=== PATIENT | female | born 1995 | race Caucasian/White ===

== ENCOUNTER 2016-08-15 10:50 | Emergency (ER) | payer OTHER ==
[2016-08-15] MEDS ORDERED: SODIUM CHLORIDE 0.9% 2,000 ML IV STA (13:15)
[2016-08-15 13:41] LABS: Basophils % (A) 0 %; CH 32.7; CHCM 34.9; Eosinophils # (A) 0.1 k/uL (0-0.7); Eosinophils % (A) 1 %; HCT 35.5 % (34.0-46.0); HDW 2.59; HGB 11.7 gm/dL (11.4-16.0); Luc # (Auto) 0.07; Luc % (Auto) 1; Lymphocytes # (A) 0.9 k/uL (1.0-4.8); Lymphocytes % (A) 7 %; MCH 31.2 pg (25.0-35.0); MCHC 33.1 g/dL (31.0-37.0); MCV 94.2 fL (80.0-100.0); Mean Platelet Volume 7.2; Monocytes # (A) 0.4 k/uL (0-1.0); Monocytes % (A) 3 %; Neutrophils % (A) 89 %; RBC 3.77 m/uL (3.80-5.40); RDW 13.4 % (11.5-15.5); WBC 13.5 k/uL (4.0-11.0); WBC (Perox) 14.22
[2016-08-15 13:44] LABS: Appearance,Urine Clear (Clear); Bilirubin,Urine Negative (Negative); Glucose,Urine (UA) Negative (Negative); Ketones,Urine 1+ (Negative); Leukocyte Esterase,Urine Negative (Negative); Nitrite,Urine Negative (Negative); Protein,Urine Negative (Negative); Specific Gravity,Urine 1.021 (1.001-1.035); UA Billing (MACRO vs. MICRO) CHEM; Urobilinogen,Urine <2.0 mg/dL (<2.0)
[2016-08-15] MEDS ORDERED: ACETAMINOPHEN IV (For NPO) 1,000 MG in EMPTY BAG 1 BAG IVPB ONE (13:51)
--- NOTE | 2016-08-15 13:51 | ED ---
General Adult HPI - General Chief complaint: OB/Uterine Contractions Stated complaint: vomiting, Time Seen by Provider: 08/15/16 13:11 Source: patient, RN notes reviewed Mode of arrival: ambulatory Limitations: no limitations - History of Present Illness Initial comments: 21-year-old female presents emergency Department with a chief complaint of nausea vomiting diarrhea. Patient is currently 20 weeks . Patient has not a vomiting diarrhea starting today. She states that she just continues to have the vomiting and abdominal cramping so she thought that she should be seen. Patient states that she is no lightheadedness or dizziness. Patient has been seeing the [facility] for this . Patient denies vaginal drainage. Patient states she does have discharge but this is normal. Patient states that she is here for the nausea vomiting diarrhea. Patient states she is not currently having any other symptoms at this time.Patient denies any recent fever , chills, shortness of breath, chest pain, back pain, numbness or tingling, dysuria or hematuria, constipation or headaches or visual changes, or any other current symptoms. - Related Data Home Medications Medication Instructions Recorded Confirmed Pnv with Ca,No.72/Iron/FA 1 tab PO DAILY 07/26/16 08/15/16 [ Plus Tablet] Allergies Allergy/AdvReac Type Severity Reaction Status Date / Time Penicillins Allergy Unknown Verified 08/15/16 13:45 Review of Systems ROS Statement: Those systems with pertinent positive or pertinent negative responses have been documented in the HPI. ROS Other: All systems not noted in ROS Statement are negative. Past Medical History Past Medical History: No Reported History History of Any Multi-Drug Resistant Organisms: None Reported Past Surgical History: No Surgical Hx Reported Past Psychological History: Anxiety Smoking Status: Former smoker Past Alcohol Use History: None Reported Past Drug Use History: None Reported General Exam - General Exam Comments Initial Comments: General: The patient is awake and alert, in no distress, and does not appear acutely ill. Eye: Pupils are equal, round and reactive to light, extra-ocular movements are intact; there is normal conjunctiva bilaterally. No signs of icterus. Ears, nose, mouth and throat: There are moist mucous membranes and no oral lesions. Neck: The neck is supple, there is no tenderness . Cardiovascular: There is a regular rate and rhythm. No murmur, rub or gallop is appreciated. Respiratory: Lungs are clear to auscultation, respirations are non-labored, breath sounds are equal. No wheezes, stridor, rales, or rhonchi. Gastrointestinal: Soft, non-distended, non-tender abdomen without masses or organomegaly noted. There is no rebound or guarding present. No CVA tenderness. Bowel sounds are unremarkable. Back: There is no tenderness to palpation in the midline. There is no obvious deformity. No rashes noted. Musculoskeletal: Normal ROM, no tenderness, There is no pedal edema. There is no calf tenderness or swelling. Sensation intact. Pulses equal bilaterally 2+. Neurological: CN II-XII intact, There are no obvious motor or sensory deficits. Coordination appears grossly intact. Speech is normal. Skin: Skin is warm and dry and no rashes or lesions are noted. Psychiatric: Cooperative, appropriate mood & affect, normal judgment. Limitations: no limitations Course Vital Signs 08/15/16 08/15/16 08/15/16 11:14 13:10 14:03 Temperature 97.3 F L Pulse Rate 108 H 71 82 Respiratory 20 14 20 Rate Blood Pressure 108/63 89/50 97/56 O2 Sat by Pulse 95 98 98 Oximetry Medical Decision Making - Medical Decision Making 21-year-old female presents with nausea vomiting diarrhea and . This time patient's lab work was reviewed. Patient is feeling better in the room. Chest. Have some ketones in urine. She was well-hydrated. We discussed return parameters and follow-up. Patient stated that she understood all questions were answered. She will be discharged. heart tones were assessed and do feel to be appropriate. - Lab Data Result diagrams: 08/15/16 13:24 08/15/16 13:24 Lab Results 08/15/16 08/15/16 08/15/16 Range/Units 13:24 13:24 13:25 WBC 13.5 H (4.0-11.0) k/uL RBC 3.77 L (3.80-5.40) m/uL Hgb 11.7 (11.4-16.0) gm/dL Hct 35.5 (34.0-46.0) % MCV 94.2 (80.0-100.0) fL MCH 31.2 (25.0-35.0) pg MCHC 33.1 (31.0-37.0) g/dL RDW 13.4 (11.5-15.5) % Plt Count 220 (150-450) k/uL Neutrophils % 89 % Lymphocytes % 7 % Monocytes % 3 % Eosinophils % 1 % Basophils % 0 % Neutrophils # 12.0 H (1.3-7.7) k/uL Lymphocytes # 0.9 L (1.0-4.8) k/uL Monocytes # 0.4 (0-1.0) k/uL Eosinophils # 0.1 (0-0.7) k/uL Basophils # 0.0 (0-0.2) k/uL Sodium 139 (137-145) mmol/L Potassium 4.3 (3.5-5.1) mmol/L Chloride 106 (98-107) mmol/L Carbon Dioxide 22 (22-30) mmol/L Anion Gap 11 mmol/L BUN 12 (7-17) mg/dL Creatinine 0.50 L (0.52-1.04) mg/dL Est GFR (MDRD) Af Amer >60 (>60 ml/min/1.73 sqM) Est GFR (MDRD) Non-Af >60 (>60 ml/min/1.73 sqM) Glucose 79 (74-99) mg/dL Calcium 9.6 (8.4-10.2) mg/dL Total Bilirubin 0.5 (0.2-1.3) mg/dL AST 17 (14-36) U/L ALT 24 (9-52) U/L Alkaline Phosphatase 72 (38-126) U/L Total Protein 6.8 (6.3-8.2) g/dL Albumin 4.2 (3.5-5.0) g/dL Amylase 53 (30-110) U/L Lipase 32 (23-300) U/L Urine Color Yellow Urine Appearance Clear (Clear) Urine pH 6.0 (5.0-8.0) Ur Specific [place] 1.021 (1.001-1.035) Urine Protein Negative (Negative) Urine Glucose (UA) Negative (Negative) Urine Ketones 1+ H (Negative) Urine Blood Negative (Negative) Urine Nitrate Negative (Negative) Urine Bilirubin Negative (Negative) Urine Urobilinogen <2.0 (<2.0) mg/dL Ur Leukocyte Esterase Negative (Negative) Disposition Clinical Impression: Nausea & vomiting, Dehydration Disposition: HOME SELF-CARE Condition: Stable Instructions: Nausea and Vomiting in (ED) Additional Instructions: Please use medication as discussed. Please follow up with family doctor if symptoms have not improved over the next two days. Please return to the emergency room if your symptoms increase or worsen or for any other concerns. Referrals: Jacobo Tovar MD [Primary Care Provider] - 1-2 days Time of Disposition: 14:37
[2016-08-15 13:54] LABS: ALT 24 U/L (9-52); AST 17 U/L (14-36); Alkaline Phosphatase 72 U/L (38-126); Amylase 53 U/L (30-110); Anion Gap 11 mmol/L; Blood Urea Nitrogen 12 mg/dL (7-17); Calcium 9.6 mg/dL (8.4-10.2); Carbon Dioxide 22 mmol/L (22-30); Chloride 106 mmol/L (98-107); Glucose 79 mg/dL (74-99); Non-African American GFR(MDRD) >60 (>60 ml/min/1.73 sqM); Potassium 4.3 mmol/L (3.5-5.1); Sodium 139 mmol/L (137-145); Total Bilirubin 0.5 mg/dL (0.2-1.3); Total Protein 6.8 g/dL (6.3-8.2)
[2016-08-15 14:55] VITALS: BP 93/56; PULSE 92; RESP 14
[2016-08-15 14:56] VITALS: TEMP 98.4
== END 2016-08-15 16:01 | disposition home or self-care (01) ==
LOC: EC 10:50
DX: O21.1 Hyperemesis gravidarum with metabolic disturbance (principal); Z3A.20 20 weeks gestation of pregnancy; Z88.0 Allergy status to penicillin; Z87.891 Personal history of nicotine dependence
CPT/HCPCS: 36415; 80053; 82150; 83690; 85025; 81003; 87086; 99284; 96365; 96361; J0131

== ENCOUNTER 2016-09-22 19:39 | Observation (INO) | payer OTHER ==
[2016-09-22] MEDS: LACTATED RINGERS 1,000 ML IV SCH (22:15)
[2016-09-22 22:56] VITALS: BMI 22.1
[2016-09-23] MEDS: LACTATED RINGERS 1,000 ML IV SCH (06:32)
--- NOTE | 2016-09-23 07:05 | P.HPOB ---
History of Present Illness H&P Date: 09/23/16 Chief Complaint: Back pain This patient is a 21-year-old 2 para 1 female 25-1/2 weeks gestation who presented to triage last evening with complaints of intermittent back pain mostly on the right side. Patient denied any vaginal bleeding or other symptomatology. Patient's care is per Dr. Carrera and appears to be complicated by late to seek care. Evaluation here shows her cervix to be closed and thick and fibronectin is negative. Review of Systems Constitutional: Denies chills, Denies fever Cardiovascular: Denies chest pain, Denies shortness of breath Respiratory: Denies cough Gastrointestinal: Denies abdominal pain, Denies diarrhea, Denies nausea, Denies vomiting Genitourinary: Reports as per HPI, Reports Menstruation: Reports amenorrhea Past Medical History Past Medical History: No Reported History History of Any Multi-Drug Resistant Organisms: None Reported Past Surgical History: No Surgical Hx Reported Past Anesthesia/Blood Transfusion Reactions: No Reported Reaction Past Psychological History: Anxiety Smoking Status: Never smoker Past Alcohol Use History: None Reported Past Drug Use History: None Reported - Past Family History Father Family Medical History: No Reported History Medications and Allergies Home Medications Medication Instructions Recorded Confirmed Type Pnv with Ca,No.72/Iron/FA 1 tab PO DAILY 07/26/16 09/22/16 History [ Plus Tablet] Allergies Allergy/AdvReac Type Severity Reaction Status Date / Time Penicillins Allergy Rash/Hives Verified 09/22/16 19:44 Exam - Vital Signs Vital signs: Vital Signs Temp Pulse Resp BP Pulse Ox 09/22/16 22:49 96.9 F L 105 H 16 118/69 99 Intake and Output 09/22/16 09/23/16 09/23/16 22:59 06:59 14:59 Other: # Voids 1 1 Weight 56.699 kg - OBG Physical Exam Cervix: Patient's had multiple cervical exams shows her cervix to be closed and thick Assessment and Plan (1) Back pain affecting in second trimester Narrative/Plan: This is a 21-year-old 2 para 1 female 25-4/7 weeks gestation with back pain and initially with some contractions. Patient's evaluation has been negative however due to the pain persisting I admitted her for observation overnight. Plan is to continue close observation discharge home if stable. Status: Acute
--- NOTE | 2016-09-23 07:06 | P.PN ---
Progress Note - Text Patient was resting overnight and slept through most of it. monitoring shows rare contractions and reassuring heart tones for 25 weeks. Patient' s had no bleeding and states that her pain is improved this morning. Plan is to allow her to a breast cyst and discharge home after that follow up with Dr. Oliva this week
--- NOTE | 2016-09-23 07:08 | P.DS ---
Providers Date of admission: 09/22/16 21:55 Expected date of discharge: 09/23/16 Attending physician: Hao Oliva Primary care physician: Stated None - Discharge Diagnosis(es) (1) Back pain affecting in second trimester Current Visit: Yes Status: Acute Hospital Course: Patient was admitted to the hospital and had negative fibronectin. Due to some persistence of her contractions I felt was best to watch her overnight. Patient was admitted and given IV fluids and subsequent bili slept through most of the night. Patient was felt to be stable for discharge home in the morning to see Dr. Oliva this week for close follow-up. Did give her strict instructions as to what to return to labor and delivery for. Patient Condition at Discharge: Good Plan - Discharge Summary Discharge Medication List Pnv with Ca,No.72/Iron/FA [ Plus Tablet] 1 tab PO DAILY 07/26/16 [ History] Follow up Appointment(s)/Referral(s): Hao Oliva DO [Doctor of Osteopathic Medicine] - 3 Days (Patient is to call the office Saturday to see Dr. Carrera earlier this week for follow-up) Activity/Diet/Wound Care/Special Instructions: No intercourse or anything per vagina. Modified bed rest until seen by Dr. Carrera. Discharge Disposition: HOME SELF-CARE
[2016-09-23 08:14] VITALS: BP 114/57; PULSE 97; RESP 20; TEMP 98
== END 2016-09-23 08:55 | disposition home or self-care (01) ==
LOC: FBPOP 19:39 → 4FBP 21:55
PROVIDERS: ADMIT Obstetrics & Gynecology; ATTEND Obstetrics & Gynecology
DX: O26.892 Other specified pregnancy related conditions, second trimester (principal); M54.9 Dorsalgia, unspecified; Z3A.25 25 weeks gestation of pregnancy; Z79.899 Other long term (current) drug therapy; Z88.0 Allergy status to penicillin
CPT/HCPCS: 82731; G0463; G0378 ×2; 96360; 96361; 99213

== ENCOUNTER → 2016-10-17 | Outpatient (CLI) | payer OTHER ==
[2016-10-17 13:29] LABS: CH 32.3; CHCM 33.7; HCT 31.5 % (34.0-46.0); HDW 2.69; HGB 10.8 gm/dL (11.4-16.0); MCH 33.1 pg (25.0-35.0); MCHC 34.3 g/dL (31.0-37.0); MCV 96.5 fL (80.0-100.0); Mean Platelet Volume 7.6; RBC 3.26 m/uL (3.80-5.40); RDW 12.8 % (11.5-15.5); WBC 12.2 k/uL (4.0-11.0)
== END | disposition home or self-care (01) ==
LOC: LABWHC1 11:49
PROVIDERS: ATTEND Obstetrics & Gynecology
DX: Z34.81 Encounter for supervision of other normal pregnancy, first trimester (principal)
CPT/HCPCS: 36415; 82950; 85027; 86850

== ENCOUNTER 2016-12-02 21:14 | Outpatient (CLI) | payer OTHER ==
[2016-12-02 21:48] VITALS: BP 141/70; PULSE 122; RESP 16; TEMP 97.7
[2016-12-02 21:48] LABS: Appearance,Urine Cloudy (Clear); Bacteria,Urine Rare /hpf; Bilirubin,Urine Negative (Negative); Glucose,Urine (UA) Negative (Negative); Ketones,Urine Negative (Negative); Leukocyte Esterase,Urine Large (Negative); Mucus,Urine Occasional /hpf; Nitrite,Urine Negative (Negative); PH, Urine 6.5 (5.0-8.0); Particle Count 9097; Protein,Urine 1+ (Negative); RBC,Urine 2 /hpf (0-5); Specific Gravity,Urine 1.026 (1.001-1.035); Squamous Epithelial Cell,Urine 4 /hpf (0-4); UA Billing (MACRO vs. MICRO) MICRO; Urobilinogen,Urine <2.0 mg/dL (<2.0); WBC,Urine 10 /hpf (0-5)
--- NOTE | 2016-12-05 08:26 | P.MSEPDOC ---
Presenting Problems - Arrival Data Date of Arrival on Unit: 12/02/16 Time of Arrival on Unit: 21:13 Mode of Transport: Wheelchair - Complaint OB-Reason for Admission/Chief Complaint: Pain Comment: 03/07 sharp, shooting starting from cervix through uterus. Medical History - Information : 2 Para: 1 Term: 0 : 0 Abortions: Spontaneous or Elective: 0 Number of Living Children: 1 - Gestational Age Expected Date of Delivery: 12/31/16 Gestational Age by DEAN (wks/days): 36 Weeks and 2 Days - History Complications: Other Comment: contractions and admission at 25 weeks. received IV fluids. Review of Systems - Review of Systems Constitutional: No problems Breast: No problems ENT: No problems Cardiovascular: No problems Respiratory: No problems Gastrointestinal: No problems Genitourinary: No problems Musculoskeletal: No problems Neurological: No problems Skin: No problems Vital Signs - Temperature Temperature: 97.7 F Temperature Source: Oral - Pulse Right Sitting Brachial Pulse Rate: 122 Pulse Assessment Method: Automatic Cuff - Respirations Respiratory Rate: 16 Oxygen Delivery Method: Room Air - Blood Pressure Right Arm Sitting Blood Pressure: 141/70 Blood Pressure Mean: 93 Blood Pressure Source: Automatic Cuff Medical Screen Scoring (Pre) - Cervical Exam Dilation: 1-3 cm = 1 Membranes: Intact - Uterine Contractions Frequency: N/A Duration: N/A Intensity: N/A - Maternal Vital Signs Maternal Temperature: N/A Maternal Blood Pressure: N/A Signs of Preeclampsia: N/A Maternal Respirations: N/A - Maternal Trauma Maternal Trauma: N/A - Assessment Baseline FHR: 150 Heart Rate - NICHD Category: Category I (Normal) = 0 NST: Reactive Station: N/A - Total Score Total Score (Pre): 1 - Level of Risk Level of Risk: Low (0-5) Physician Notification (Pre) - Physician Notified Physician Notified Date: 12/02/16 Physician/Practitioner Notifed:: dr fuller Physician Notification (Post) - Physician Notified Physician Notified Date: 12/02/16 Physician Notified Time: 22:00 Physician/Practitioner Notified:: jonny New Order Received: Yes - Notification Comment Comment: ordered to d/c patient with orders to follow up with kuester tomorrow. Disposition - Disposition OB Disposition: Discharge to home, Written follow up instructions reviewed Discharge Date: 12/02/16 Discharge Time: 22:05 I agree with the RN Medical Screening Exam: Yes Risk & Benefit of care provided described in d/c instruction: Yes Diagnosis: PELVIC AND PERINEAL PAIN
== END 2016-12-02 22:05 | disposition home or self-care (01) ==
LOC: FBPOP 21:14
PROVIDERS: ATTEND Obstetrics & Gynecology
DX: O99.89 Other specified diseases and conditions complicating pregnancy, childbirth and the puerperium (principal); R10.2 Pelvic and perineal pain; Z3A.36 36 weeks gestation of pregnancy
CPT/HCPCS: 59025; 81001; G0463; 99213

== ENCOUNTER 2016-12-19 17:57 | Observation (INO) | payer OTHER ==
[2016-12-19 19:02] VITALS: BP 124/62; PULSE 139; RESP 17
[2016-12-19 19:49] VITALS: TEMP 97; BMI 25.7
[2016-12-19] MEDS ORDERED: CARBOPROST TROMETHAMINE 250 MCG/ML 1 ML AMP IM PRN (19:49)
[2016-12-19] MEDS ORDERED: METHYLERGONOVINE 0.2 MG/ML 1 ML AMP IM PRN (19:49)
[2016-12-19] MEDS ORDERED: TERBUTALINE 1 MG/ML VIAL SQ PRN (19:49)
[2016-12-19] MEDS ORDERED: OXYTOCIN 10 UNIT/ML 1 ML VIAL IM PRN (19:49)
[2016-12-19] MEDS ORDERED: LIDOCAINE 1% (PF) 10 MG/ML (30 ML SDV) SQ PRN (19:49)
[2016-12-19] MEDS ORDERED: BUTORPHANOL 1 MG/ML 1 ML VIAL IV PRN (19:51)
[2016-12-19] MEDS ORDERED: OXYTOCIN 20 UNITS/1000 ML NS 1,000 ML IV SCH (20:00)
[2016-12-19] MEDS: LACTATED RINGERS 1,000 ML IV SCH (20:18)
[2016-12-19 20:31] LABS: Basophils # (A) 0.1 k/uL (0-0.2); Basophils % (A) 0 %; CHCM 33.4; Eosinophils # (A) 0.1 k/uL (0-0.7); Eosinophils % (A) 1 %; HCT 31.3 % (34.0-46.0); HDW 3.29; HGB 10.4 gm/dL (11.4-16.0); Luc # (Auto) 0.17; Luc % (Auto) 1; Lymphocytes # (A) 1.7 k/uL (1.0-4.8); Lymphocytes % (A) 14 %; MCH 30.1 pg (25.0-35.0); MCHC 33.4 g/dL (31.0-37.0); Monocytes # (A) 0.5 k/uL (0-1.0); Monocytes % (A) 4 %; Neutrophils # (A) 9.8 k/uL (1.3-7.7); Neutrophils % (A) 79 %; RBC 3.47 m/uL (3.80-5.40); RDW 13.1 % (11.5-15.5); WBC 12.3 k/uL (4.0-11.0); WBC (Perox) 12.47
[2016-12-19 20:32] LABS: MCV 90.2 fL (80.0-100.0)
[2016-12-20] MEDS: LACTATED RINGERS 1,000 ML IV SCH (02:02)
--- NOTE | 2016-12-20 11:01 | P.HPOB ---
History of Present Illness H&P Date: 12/20/16 Chief Complaint: Intrauterine term: status post fall In is a 21-year-old female who [place] last [place] and fell and hit her arm and leg she is brought to labor and delivery was noted to be naye at that time and appeared uncomfortable. She may baby minimal cervical change to 3-3/2 cm but once IV started the contractions abated and she made no further cervical change. After observing her all night which amounts to greater than 12 hours of observation she is made no other cervical change. Her Precis course otherwise has been unremarkable. Heart regular, lungs clear, extremities without pain. Vital signs are stable and afebrile. heart tones 140s and reactive. Assessment status post fall term . Plan observation Past Medical History Past Medical History: No Reported History History of Any Multi-Drug Resistant Organisms: None Reported Past Surgical History: No Surgical Hx Reported Past Anesthesia/Blood Transfusion Reactions: No Reported Reaction Past Psychological History: Anxiety Smoking Status: Never smoker Past Alcohol Use History: None Reported Past Drug Use History: None Reported - Past Family History Father Family Medical History: No Reported History Medications and Allergies Home Medications Medication Instructions Recorded Confirmed Type Pnv,Calcium 72/Iron/Folic Acid 1 tab PO DAILY 07/26/16 12/19/16 History [ Plus Tablet] Allergies Allergy/AdvReac Type Severity Reaction Status Date / Time Penicillins Allergy Rash/Hives Verified 12/19/16 18:15 Exam Osteopathic Statement: *. No significant issues noted on an osteopathic structural exam other than those noted in the History and Physical/Consult. - Vital Signs Vital signs: Vital Signs Temp Pulse Resp BP Pulse Ox 12/19/16 19:42 97 F L 139 H 17 124/62 100 12/19/16 18:20 97.0 F L 139 H 17 124/62 100 Intake and Output 12/19/16 12/20/16 12/20/16 22:59 06:59 14:59 Intake Total 1000 Balance 1000 Intake: IV 1000 Lactated Ringers 1,000 ml 1000 @ 125 mls/hr IV .Q8H CATHIE Rx#:[id number] Other: # Voids 1 1 Weight 65.771 kg Results Result Diagrams: 12/19/16 20:18 Abnormal Lab Results - Last 24 Hours (Table) 12/19/16 Range/Units 20:18 WBC 12.3 H (4.0-11.0) k/uL RBC 3.47 L (3.80-5.40) m/uL Hgb 10.4 L (11.4-16.0) gm/dL Hct 31.3 L (34.0-46.0) % Neutrophils # 9.8 H (1.3-7.7) k/uL
--- NOTE | 2016-12-20 11:02 | P.DS ---
Providers Date of admission: 12/19/16 19:33 Expected date of discharge: 12/20/16 Attending physician: Hao Oliva Primary care physician: Stated None Hospital Course: After observing patient all night contractions have essentially abated and she is having future no contractions at this time. heart tones were in the 140s and reactive. She was scheduled to see me later today but will have her call and changes that first part of next week as there is no other changes that are going to be needed today. She is aware to return with contractions or other changes. All other questions are answered for her and there is no changed her physical exam or vital signs since earlier this morning. Patient Condition at Discharge: Good Plan - Discharge Summary Discharge Medication List Pnv,Calcium 72/Iron/Folic Acid [ Plus Tablet] 1 tab PO DAILY 07/26/16 [ History] Discharge Disposition: HOME SELF-CARE
== END 2016-12-20 10:15 | disposition home or self-care (01) ==
LOC: FBPOP 17:57 → 4FBP 19:33 → INTOOBSV 19:33
PROVIDERS: ADMIT Obstetrics & Gynecology; ATTEND Obstetrics & Gynecology
DX: O62.8 Other abnormalities of forces of labor (principal); Z3A.20 20 weeks gestation of pregnancy; Z91.81 History of falling; O99.342 Other mental disorders complicating pregnancy, second trimester; F41.9 Anxiety disorder, unspecified; Z88.0 Allergy status to penicillin
CPT/HCPCS: 59025; 84112; 85025; G0463; G0378 ×2; 99213

== ENCOUNTER 2017-01-01 06:00 | Inpatient (IN) | payer OTHER ==
[2017-01-01] MEDS ORDERED: CARBOPROST TROMETHAMINE 250 MCG/ML 1 ML AMP IM PRN (07:15)
[2017-01-01] MEDS ORDERED: OXYTOCIN 20 UNITS/1000 ML NS 1,000 ML IV SCH (07:15)
[2017-01-01] MEDS ORDERED: OXYTOCIN 10 UNIT/ML 1 ML VIAL IM PRN (07:15)
[2017-01-01] MEDS ORDERED: LIDOCAINE 1% (PF) 10 MG/ML (30 ML SDV) SQ PRN (07:15)
[2017-01-01] MEDS ORDERED: TERBUTALINE 1 MG/ML VIAL SQ PRN (07:15)
[2017-01-01] MEDS ORDERED: METHYLERGONOVINE 0.2 MG/ML 1 ML AMP IM PRN (07:15)
[2017-01-01 07:28] VITALS: BMI 25.3
[2017-01-01 07:30] LABS: Basophils # (A) 0.1 k/uL (0-0.2); Basophils % (A) 1 %; CH 29.3; CHCM 32.9; Eosinophils # (A) 0.2 k/uL (0-0.7); Eosinophils % (A) 1 %; HCT 30.5 % (34.0-46.0); HDW 3.28; HGB 10.2 gm/dL (11.4-16.0); Luc # (Auto) 0.28; Luc % (Auto) 2; Lymphocytes # (A) 2.5 k/uL (1.0-4.8); Lymphocytes % (A) 19 %; MCH 30.1 pg (25.0-35.0); MCHC 33.6 g/dL (31.0-37.0); MCV 89.6 fL (80.0-100.0); Mean Platelet Volume 6.9; Monocytes # (A) 0.5 k/uL (0-1.0); Monocytes % (A) 4 %; Neutrophils # (A) 9.6 k/uL (1.3-7.7); Neutrophils % (A) 73 %; RDW 13.5 % (11.5-15.5); WBC 13.1 k/uL (4.0-11.0); WBC (Perox) 12.46
[2017-01-01] MEDS: LACTATED RINGERS 1,000 ML IV SCH ×2 (07:32→09:10)
[2017-01-01] MEDS ORDERED: fentaNYL (PF) 50 MCG/ML 5 ML AMP ONE (08:45)
[2017-01-01] MEDS ORDERED: SODIUM CHLORIDE 0.9% 100 ML BAG ONE (08:45)
[2017-01-01] MEDS ORDERED: BUPIVACAINE (PF) 0.25% 30 ML VIAL ONE (08:45)
[2017-01-01] MEDS ORDERED: BUPIVACAINE (PF) 0.25% 25 ML, fentaNYL (PF) 200 MCG in SODIUM CHLORIDE 0.9% 71 ML EPIDURAL ONE (10:46)
[2017-01-01] MEDS ORDERED: BENZOCAINE SPRAY 57GM TOPICAL PRN (13:26)
[2017-01-01] MEDS ORDERED: ZOLPIDEM 5 MG TAB PO PRN (13:26)
[2017-01-01] MEDS ORDERED: Acetaminophen-Codeine 300-30mg TAB PO PRN ×2 (13:26)
[2017-01-01] MEDS ORDERED: HYDROCORTISONE 2.5% RECTAL CREAM 30 GM TUBE RECTAL PRN (13:26)
[2017-01-01] MEDS ORDERED: diphenhydrAMINE 50 MG/ML 1 ML VIAL IVP PRN ×2 (13:26)
[2017-01-01] MEDS ORDERED: LANOLIN CREAM 5 GM TUBE TOPICAL PRN (13:26)
[2017-01-01] MEDS ORDERED: WITCH HAZEL 1 EACH MED..PAD TOPICAL PRN (13:26)
[2017-01-01] MEDS ORDERED: diphenhydrAMINE 25 MG CAP PO PRN (13:26)
[2017-01-01] MEDS ORDERED: diphenhydrAMINE 50 MG CAP PO PRN (13:26)
[2017-01-01] MEDS ORDERED: SIMETHICONE 80 MG CHEWABLE PO PRN (13:26)
--- NOTE | 2017-01-01 13:34 | P.HPOB ---
History of Present Illness H&P Date: 01/01/17 Chief Complaint: Intrauterine at term: Induction of labor Patient is a 21-year-old G3 to P1 at 39 weeks gestation who arrives for induction of labor. Her course has been, K to 5 measuring small for dates but ultrasounds have consistently show the baby to be adequate size. She is scheduled for a an induction of labor today at her request. Nonstress test done yesterday was reactive. Pertinent labs do include A- blood type, Rh antibody negative. Rubella hepatitis B, RPR were all negative as was group B strep. On On physical exam vital signs are stable and afebrile. Heart regular, lungs clear, extremities without pain. Pelvic exam reveals her to be 3 cm dilated 80 % effaced artificial rupture membranes was performed and clear fluid is noted. heart tones are in the 140s and reactive prior to artificial rupture membranes. Assessment intrauterine at 39 weeks. Plan expect spontaneous vaginal delivery with Pitocin augmentation of labor. Land for epidural for pain control Past Medical History Past Medical History: No Reported History History of Any Multi-Drug Resistant Organisms: None Reported Past Surgical History: No Surgical Hx Reported Past Anesthesia/Blood Transfusion Reactions: No Reported Reaction Past Psychological History: Anxiety Smoking Status: Never smoker Past Alcohol Use History: None Reported Past Drug Use History: None Reported - Past Family History Father Family Medical History: No Reported History Medications and Allergies Home Medications Medication Instructions Recorded Confirmed Type Pnv,Calcium 72/Iron/Folic Acid 1 tab PO DAILY 07/26/16 01/01/17 History [ Plus Tablet] Allergies Allergy/AdvReac Type Severity Reaction Status Date / Time Penicillins Allergy Rash/Hives Verified 01/01/17 07:14 Exam Osteopathic Statement: *. No significant issues noted on an osteopathic structural exam other than those noted in the History and Physical/Consult. - Vital Signs Vital signs: Vital Signs Temp Pulse Resp BP Pulse Ox 01/01/17 07:19 96.6 F L 125 H 17 113/59 99 Intake and Output 12/31/16 01/01/17 01/01/17 22:59 06:59 14:59 Other: Weight 64.864 kg Patient Weight 01/02/17 06:59 Weight 64.864 kg Results Result Diagrams: 01/01/17 07:10 Abnormal Lab Results - Last 24 Hours (Table) 01/01/17 Range/Units 07:10 WBC 13.1 H (4.0-11.0) k/uL RBC 3.40 L (3.80-5.40) m/uL Hgb 10.2 L (11.4-16.0) gm/dL Hct 30.5 L (34.0-46.0) % Neutrophils # 9.6 H (1.3-7.7) k/uL
--- NOTE | 2017-01-01 13:35 | P.PROBDLV ---
Vaginal Delivery Note - . Vaginal Delivery Note: She progressed complete and pushed with spontaneous vaginal delivery of a viable male over a second-degree midline laceration. Following delivery of the head anterior posterior shoulders were easily delivered with downward and upward traction followed by the remainder the baby. Baby was delivered from left occiput anterior position. Once baby's was delivered baby was placed on mother's abdomen mouth nares were bulb suctioned and the umbilical cord was allowed to pulsate for 30 seconds. Following clamping and cutting of the cord placenta was delivered intact and Pitocin was added to the IV. Xylocaine was then used to inject the perineum for repair and repair was done in usual fashion with 3-0 Vicryl. Both mother and baby are stable findings delivery and scores and weight are pending
[2017-01-01] MEDS: IBUPROFEN 600 MG TAB PO PRN (13:46)
[2017-01-01] MEDS: ACETAMINOPHEN TAB 325 MG TAB PO PRN (18:16)
[2017-01-01] MEDS: SENNOSIDES-DOCUSATE SODIUM 1 EACH TAB PO SCH (20:58)
[2017-01-01 22:35] VITALS: RESP 16
[2017-01-02] MEDS: ACETAMINOPHEN TAB 325 MG TAB PO PRN (02:51)
[2017-01-02] MEDS: IBUPROFEN 600 MG TAB PO PRN ×2 (04:30→13:03)
[2017-01-02 08:07] VITALS: BP 104/63; PULSE 90; TEMP 98.5
--- NOTE | 2017-01-02 08:09 | P.DS ---
Providers Date of admission: 01/01/17 06:45 Expected date of discharge: 01/02/17 Attending physician: Hao Oliva Primary care physician: Stated None Hospital Course: Patient is doing very well day 1. She delivered a viable male yesterday and she is requesting discharge home today. Her vital signs are stable and afebrile. Heart regular, lungs clear, extremities without pain. Abdomen soft uterus is firm lochia is reported be light. She is voicing no complaints. She is ambulating, voiding, and she is tolerating her diet. Prescription for Tylenol No. 3 and Motrin have been provided. Discharge instructions were thoroughly reviewed and all questions are answered for her prior to her discharge. Patient Condition at Discharge: Good Plan - Discharge Summary New Discharge Prescriptions: New Acetaminophen-Codeine 300-30mg [Tylenol #3] 1 tab PO Q4H PRN #30 tablet PRN Reason: Pain Ibuprofen [Motrin] 600 mg PO Q6HR PRN #30 tab PRN Reason: Pain No Action Pnv,Calcium 72/Iron/Folic Acid [ Plus Tablet] 1 tab PO DAILY Discharge Medication List Pnv,Calcium 72/Iron/Folic Acid [ Plus Tablet] 1 tab PO DAILY 07/26/16 [ History] Acetaminophen-Codeine 300-30mg [Tylenol #3] 1 tab PO Q4H PRN #30 tablet [Rx] Ibuprofen [Motrin] 600 mg PO Q6HR PRN #30 tab 01/02/17 [Rx] Follow up Appointment(s)/Referral(s): Hao Oliva DO [Doctor of Osteopathic Medicine] - 6 Weeks Activity/Diet/Wound Care/Special Instructions: No heavy lifting, limit stairs and driving and pelvic rest. If any high temperatures, heavy bleeding, or severe pain call my office Discharge Disposition: HOME SELF-CARE
[2017-01-02] MEDS: SENNOSIDES-DOCUSATE SODIUM 1 EACH TAB PO SCH (10:27)
[2017-01-02] MEDS ORDERED: Rhogam IMMUNE GLOBULIN 1,500 UNIT/1 ML IM ONE (13:27)
== END 2017-01-02 14:40 | disposition home or self-care (01) | DRG 775 ==
LOC: EDSTATUS 06:00 → 4FBP 06:45
PROVIDERS: ADMIT Obstetrics & Gynecology; ATTEND Obstetrics & Gynecology
PROC: 10E0XZZ Delivery of Products of Conception, External Approach (ICD-10-PCS; principal; 2017-01-01)
PROC: 0KQM0ZZ Repair Perineum Muscle, Open Approach (ICD-10-PCS; 2017-01-01)
PROC: 10907ZC Drainage of Amniotic Fluid, Therapeutic from Products of Conception, Via Natural or Artificial Opening (ICD-10-PCS; 2017-01-01)
PROC: 3E0234Z Introduction of Serum, Toxoid and Vaccine into Muscle, Percutaneous Approach (ICD-10-PCS; 2017-01-01)
DX: O99.344 Other mental disorders complicating childbirth (principal); F41.9 Anxiety disorder, unspecified; Z37.0 Single live birth; O70.1 Second degree perineal laceration during delivery; Z3A.39 39 weeks gestation of pregnancy; Z88.0 Allergy status to penicillin
CPT/HCPCS: 85025; 85461; 88307

== ENCOUNTER 2018-09-09 16:51 | Emergency (ER) | payer OTHER ==
[2018-09-09 17:07] VITALS: BP 127/72; RESP 18; TEMP 99
[2018-09-09] MEDS ORDERED: IBUPROFEN 600 MG TAB PO STA (17:16)
[2018-09-09] MEDS ORDERED: guaiFENesin-DM 600/30MG 1 EACH TAB.ER.12H PO STA (17:17)
--- NOTE | 2018-09-09 17:19 | ED ---
General Adult HPI - General Chief complaint: Upper Respiratory Infection Stated complaint: congestion/sore & swollen throat Time Seen by Provider: 09/09/18 17:01 Source: patient Mode of arrival: ambulatory Limitations: no limitations - History of Present Illness Initial comments: 23-year-old female patient presents to the emergency department today for evaluation of sore throat, nasal congestion, and cough. Patient states that she has been feverish and chilled. States symptoms started last night. States that there throat feels very swollen makes it difficult to swallow. She denies any unilateral throat pain. Denies any chance of . States that her significant other sick with similar symptoms. Patient denies any recent rash, shortness breath, chest pain, abdominal pain, nausea, vomiting, diarrhea, constipation, back pain, numbness, tingling, dizziness, weakness, hematuria, dysuria, urinary urgency, urinary frequency, headache, visual changes, or any other complaints. - Related Data Home Medications Medication Instructions Recorded Confirmed Pnv,Calcium 72/Iron/Folic Acid 1 tab PO DAILY 07/26/16 01/01/17 [ Plus Tablet] Previous Rx's Medication Instructions Recorded Acetaminophen-Codeine 300-30mg 1 tab PO Q4H PRN #30 tablet 01/02/17 [Tylenol #3] Ibuprofen [Motrin] 600 mg PO Q6HR PRN #30 tab 01/02/17 guaiFENesin-DM 600/30MG [Mucinex 1 each PO Q12HR #10 tab.er.12h 09/09/18 Dm] Allergies Allergy/AdvReac Type Severity Reaction Status Date / Time Penicillins Allergy Rash/Hives Verified 09/09/18 17:07 Review of Systems ROS Statement: Those systems with pertinent positive or pertinent negative responses have been documented in the HPI. ROS Other: All systems not noted in ROS Statement are negative. Past Medical History Past Medical History: No Reported History History of Any Multi-Drug Resistant Organisms: None Reported Past Surgical History: No Surgical Hx Reported Past Anesthesia/Blood Transfusion Reactions: No Reported Reaction Past Psychological History: Anxiety Smoking Status: Current some day smoker Past Alcohol Use History: None Reported Past Drug Use History: None Reported - Past Family History Father Family Medical History: No Reported History General Exam Limitations: no limitations General appearance: alert, in no apparent distress, other (This is a well- developed, well-nourished adult female patient in no acute distress. Vital signs upon presentation are temperature 99.4F oral, pulse 129, respirations 18 , blood pressure 127/72, pulse ox 100% on room air.) Eye exam: Present: normal appearance, PERRL, EOMI. Absent: scleral icterus, conjunctival injection, periorbital swelling ENT exam: Present: mucous membranes moist, TM's normal bilaterally. Absent: normal exam, normal oropharynx (Pharyngeal erythema, tonsillar hypertrophy. No tonsillar exudate noted. Tonsils are symmetric.) Neck exam: Present: normal inspection, lymphadenopathy (Anterior cervical lymphadenopathy). Absent: tenderness, meningismus Respiratory exam: Present: normal lung sounds bilaterally. Absent: respiratory distress, wheezes, rales, rhonchi, stridor Cardiovascular Exam: Present: normal rhythm, tachycardia, normal heart sounds. Absent: systolic murmur, diastolic murmur, rubs, gallop, clicks GI/Abdominal exam: Present: soft, normal bowel sounds. Absent: distended, tenderness, guarding, rebound, rigid Neurological exam: Present: alert, oriented X3, CN II-XII intact Psychiatric exam: Present: normal affect, normal mood Skin exam: Present: warm, dry, intact, normal color. Absent: rash Course Vital Signs 09/09/18 09/09/18 17:04 19:00 Temperature 99 F Pulse Rate 129 H 115 H Respiratory 18 18 Rate Blood Pressure 127/72 O2 Sat by Pulse 100 99 Oximetry Medical Decision Making - Medical Decision Making 23-year-old female patient presented to the emergency department today for evaluation of cough, sore throat, nasal congestion. Patient states symptoms started last evening. States she has had hot and cold flashes. She denies any nausea or vomiting. Denies any chance of . Lungs are clear to auscultation with good air movement. She denies sputum production. Influenza and strep testing were negative. Did discuss findings and results with the patient. We did discuss her symptoms are most likely viral in nature. We did discuss supportive care. She'll be given a prescription for Mucinex DM. She is instructed to follow-up with her primary care physician for recheck in 1-2 days. Return parameters discussed in detail. She verbalizes understanding and agrees with this plan - Lab Data Lab Results 09/09/18 09/09/18 Range/Units 17:30 17:30 Influenza Type A RNA Not Detected (Not Detectd) Influenza Type B (PCR) Not Detected (Not Detectd) Group A Strep Rapid Negative (Negative) Disposition Clinical Impression: Viral upper respiratory infection Disposition: HOME SELF-CARE Condition: Good Instructions (If sedation given, give patient instructions): Upper Respiratory Infection (ED) Additional Instructions: Increase fluids. Alternate Tylenol and Motrin for pain and fever control. Take Mucinex DM as needed for symptom relief. Follow-up with her primary care physician for recheck in 1-2 days. Return to the emergency department immediately for any new, worsening, or concerning symptoms. Prescriptions: guaiFENesin-DM 600/30MG [Mucinex Dm] 1 each PO Q12HR #10 tab.er.12h Is patient prescribed a controlled substance at d/c from ED?: No Referrals: [facility] [NON[facility]] - 1-2 days Time of Disposition: 18:54
[2018-09-09 19:02] VITALS: PULSE 115
== END 2018-09-09 19:01 | disposition home or self-care (01) ==
LOC: EC 16:51
DX: J06.9 Acute upper respiratory infection, unspecified (principal); F17.200 Nicotine dependence, unspecified, uncomplicated; Z88.0 Allergy status to penicillin
CPT/HCPCS: 87081; 87430; 87502; 99283

== ENCOUNTER → 2020-01-12 | Outpatient (CLI) | payer OTHER ==
--- NOTE | 2020-01-12 15:31 | US ---
EXAMINATION TYPE: Transabdominal DATE OF EXAM: 01/12/2020 2:55 PM COMPARISON: NONE CLINICAL HISTORY: Z36 Confirm Dates. EXAM PERFORMED: Transabdominal (TA) EXAM MEASUREMENTS: GESTATIONAL AGE / DATING Physician Established: Not yet established Dates by LMP: 09/28/2019 (12 weeks/2 days) EDC: 07/24/2020 Dates by First Scan: No previous. Dates by Current Scan for: (11 weeks/0 days) EDC: 08/02/2020 MATERNAL ANATOMY Uterus: 14.7 x 9.2 x 7.0cm Right Ovary: 2.8 x 2.6 x 1.4cm Left Ovary: 3.3 x 2.4 x 2.1cm Post CDS / Adnexa: wnl Presence of free fluid: no Presence of corpus luteal cyst: not identified Presence of subchorionic bleed: small. hypoechoic area is noted inferior to gestational sac and size = 1.0 x 0.7 x 0.4cm. GESTATION / SURVEY CRL: 4.1cm (11 weeks/0 days) Yolk Sac (normal less than 6mm): 4.0mm Heart Rate: 174 bpm Rhythm: Normal IUP: single Date of LMP: 10/18/2019 Beta HcG (if available): not available IMPRESSION: Single, live IUP,11 weeks/0 days, EDC: 08/02/2020, Heart Rate 174bpm.
== END | disposition home or self-care (01) ==
LOC: RADUSWWP 14:35
PROVIDERS: ATTEND Obstetrics & Gynecology
DX: Z36.9 Encounter for antenatal screening, unspecified (principal); Z3A.11 11 weeks gestation of pregnancy; Z88.0 Allergy status to penicillin; Z88.8 Allergy status to other drugs, medicaments and biological substances
CPT/HCPCS: 76801

== ENCOUNTER 2020-07-13 06:30 | Inpatient (IN) | payer OTHER ==
--- NOTE | 2020-07-12 17:03 | P.HPOB ---
History of Present Illness H&P Date: 07/12/20 Chief Complaint: at term: IUGR Patient is a 25-year-old at 37 weeks gestation who has been followed for small for gestational age/IUGR. Her last ultrasound baby returned less than 10th percentile at 36 weeks and she is therefore being induced for same today. Cervix last visit was dilated to 1 cm 6% effaced -2 station. Her course otherwise had been generally unremarkable. And she was feeling well at her initial presentation and at her last few visits. Pertinent labs did include A- blood type Rh antibody was negative, rubella was immune, hepatitis she surface antigen and RPR were both negative groupie strep was also negative. Past Medical History Past Medical History: No Reported History History of Any Multi-Drug Resistant Organisms: None Reported Past Surgical History: No Surgical Hx Reported Past Anesthesia/Blood Transfusion Reactions: No Reported Reaction Past Psychological History: Anxiety Past Alcohol Use History: None Reported Past Drug Use History: None Reported - Past Family History Father Family Medical History: No Reported History Medications and Allergies Home Medications Medication Instructions Recorded Confirmed Type Pnv,Calcium 72/Iron/Folic Acid 1 tab PO DAILY 07/26/01/01/17 History [ Plus Tablet] Acetaminophen-Codeine 300-30mg 1 tab PO Q4H PRN #30 tablet 01/02/17 Rx [Tylenol #3] Ibuprofen [Motrin] 600 mg PO Q6HR PRN #30 tab 01/02/17 Rx guaiFENesin-DM 600/30MG [Mucinex 1 each PO Q12HR #10 tab.er.12h 09/09/18 Rx Dm] Allergies Allergy/AdvReac Type Severity Reaction Status Date / Time Penicillins Allergy Rash/Hives Verified 09/09/18 17:07 Exam Osteopathic Statement: *. No significant issues noted on an osteopathic structural exam other than those noted in the History and Physical/Consult. - OBG Physical Exam Breast: both: normal (no masses) Abdomen: bowel sounds normal, no diffuse tenderness, no bruit present, no guarding noted, no hepatomegaly, no splenomegaly, no mass Vulva: both: normal Vagina: normal moisture, no discharge Cervix: no lesion, no discharge Uterus: normal size, normal contour Adnexa: both: normal Anus/Rectum: normal perianal skin, no rectal mass, no hemorrhoids, heme negative
[~2020-07-13 06:30] MED LIST: CARBOPROST TROMETHAMINE 250 MCG/ML 1 ML AMP IM PRN; LIDOCAINE 0.5% (PF) 5 MG/ML (50 ML SDV) SQ PRN; METHYLERGONOVINE 0.2 MG/ML 1 ML AMP IM PRN; OXYTOCIN 10 UNIT/ML 1 ML VIAL IM PRN; OXYTOCIN 30 UNITS/500 ML NS 30 UNIT in SALINE 1 500ML.BAG IV SCH; TERBUTALINE 1 MG/ML VIAL SQ PRN
[2020-07-13] MEDS: LACTATED RINGERS 1,000 ML IV SCH ×3 (06:53→13:36)
[2020-07-13 07:09] LABS: Basophils # (A) 0.1 k/uL (0-0.2); Basophils % (A) 0 %; Eosinophils # (A) 0.2 k/uL (0-0.7); Eosinophils % (A) 1 %; HCT 34.3 % (34.0-46.0); HGB 11.7 gm/dL (11.4-16.0); Lymphocytes # (A) 2.2 k/uL (1.0-4.8); Lymphocytes % (A) 20 %; MCH 32.4 pg (25.0-35.0); MCHC 34.2 g/dL (31.0-37.0); MCV 94.7 fL (80.0-100.0); Mean Platelet Volume 7.1; Monocytes # (A) 0.5 k/uL (0-1.0); Monocytes % (A) 4 %; Neutrophils # (A) 8.1 k/uL (1.3-7.7); Neutrophils % (A) 73 %; Platelet Count 232 k/uL (150-450); RBC 3.62 m/uL (3.80-5.40); RDW 12.8 % (11.5-15.5); WBC 11.1 k/uL (3.8-10.6)
[2020-07-13] MEDS: BUTORPHANOL 1 MG/ML 1 ML VIAL IV PRN ×2 (08:47→12:19)
[2020-07-13] MEDS ORDERED: fentaNYL (PF) 50 MCG/ML 5 ML AMP ONE (12:58)
[2020-07-13] MEDS ORDERED: SODIUM CHLORIDE 0.9% 100 ML BAG ONE (12:58)
[2020-07-13] MEDS ORDERED: ROPIVACAINE 5MG/ML 20ML VIAL ONE (12:58)
[2020-07-13] MEDS ORDERED: ROPIVACAINE 100 MG, fentaNYL (PF) 200 MCG in SODIUM CHLORIDE 0.9% 76 ML EPIDURAL ONE (14:06)
[2020-07-13] MEDS ORDERED: SIMETHICONE 80 MG CHEWABLE PO PRN (14:31)
[2020-07-13] MEDS ORDERED: LANOLIN CREAM 5 GM TUBE TOPICAL PRN (14:31)
[2020-07-13] MEDS ORDERED: BENZOCAINE/MENTHOL SPRAY 1 GM/SPRAY AEROSOL TOPICAL PRN (14:31)
[2020-07-13] MEDS ORDERED: HYDROCORTISONE 2.5% RECTAL CREAM 30 GM TUBE RECTAL PRN (14:31)
[2020-07-13] MEDS ORDERED: diphenhydrAMINE 25 MG CAP PO PRN (14:31)
[2020-07-13] MEDS ORDERED: diphenhydrAMINE 50 MG/ML 1 ML VIAL IVP PRN ×2 (14:31)
[2020-07-13] MEDS ORDERED: diphenhydrAMINE 50 MG CAP PO PRN (14:31)
[2020-07-13] MEDS ORDERED: ZOLPIDEM 5 MG TAB PO PRN (14:31)
--- NOTE | 2020-07-13 14:33 | P.PROBDLV ---
Vaginal Delivery Note - . Vaginal Delivery Note: Breast complete and pushed with spontaneous vaginal delivery of a viable female over a first-degree perineal laceration. Falling deliver the head from right occiput anterior position anterior shoulder was easily delivered with gentle sideward traction followed by inferior shoulder which was easily also delivered and then the remainder the baby. Mouth nares were then bulb suctioned and baby was placed on mother's abdomen where the umbilical cord was allowed to pulsate for 1 minute prior to clamping and cutting. Once this was completed nursery personnel was present and assumed care.'s first repair perineal laceration was then repaired with 3-0 Vicryl in running fashion following 1% Xylocaine for analgesia. scores are pending but mother and baby are stable following delivery. Weight was 5 lbs. 4 oz.
[2020-07-13] MEDS ORDERED: OXYTOCIN 20 UNITS/1000 ML NS 1,000 ML IV SCH (14:45)
[2020-07-13] MEDS: IBUPROFEN 600 MG TAB PO PRN ×2 (15:44→22:16)
[2020-07-13] MEDS: SENNOSIDES-DOCUSATE SODIUM 1 EACH TAB PO SCH (19:33)
[2020-07-13] MEDS: ACETAMINOPHEN TAB 325 MG TAB PO PRN (19:33)
[2020-07-14] MEDS: IBUPROFEN 600 MG TAB PO PRN ×2 (05:38→11:27)
[2020-07-14] MEDS: SENNOSIDES-DOCUSATE SODIUM 1 EACH TAB PO SCH (08:04)
[2020-07-14 08:06] VITALS: BP 105/79; PULSE 77; RESP 17; TEMP 97.7
--- NOTE | 2020-07-14 09:48 | P.DS ---
Providers Date of admission: 07/13/20 06:33 Expected date of discharge: 07/14/20 Attending physician: Hao Oliva Primary care physician: Stated None Hospital Course: Patient is doing very well post day 1. She is ambulating, voiding and she is tolerating her diet. She voices no complaints and is requesting discharge home today. A prescription for Motrin has been 4 to her pharmacy and all other questions were answered for her. Discharge instructions were thoroughly reviewed. On physical exam vital signs are stable and afebrile. Heart regular, lungs clear, extremities are without pain. Abdomen is soft uterus is firm and lochia is reported to be light. Assessment day 1. Plan discharged home follow up with me in 6 weeks. Patient Condition at Discharge: Good Plan - Discharge Summary New Discharge Prescriptions: New Ibuprofen [Motrin] 600 mg PO Q6HR PRN #30 tab PRN Reason: Pain Discharge Medication List Ibuprofen [Motrin] 600 mg PO Q6HR PRN #30 tab 07/14/20 [Rx] Follow up Appointment(s)/Referral(s): Hao Oliva DO [Doctor of Osteopathic Medicine] - 6 Weeks Activity/Diet/Wound Care/Special Instructions: No heavy lifting, limit driving, and pelvic rest. If any high temperatures, heavy bleeding, or severe pain call my office Discharge Disposition: HOME SELF-CARE
[2020-07-14] MEDS: ACETAMINOPHEN TAB 325 MG TAB PO PRN (15:34)
== END 2020-07-14 16:08 | disposition home or self-care (01) | DRG 807 ==
LOC: 4FBP 06:33
PROVIDERS: ADMIT Obstetrics & Gynecology; ATTEND Obstetrics & Gynecology
PROC: 10E0XZZ Delivery of Products of Conception, External Approach (ICD-10-PCS; principal; 2020-07-13)
PROC: 0HQ9XZZ Repair Perineum Skin, External Approach (ICD-10-PCS; principal; 2020-07-13)
DX: O36.5930 Maternal care for other known or suspected poor fetal growth, third trimester, not applicable or unspecified (principal); Z37.0 Single live birth; O70.0 First degree perineal laceration during delivery; F41.9 Anxiety disorder, unspecified; O99.344 Other mental disorders complicating childbirth; Z3A.37 37 weeks gestation of pregnancy; Z88.0 Allergy status to penicillin
CPT/HCPCS: 85025; 86850; 86870; 86880; 86900; 86901

== ENCOUNTER 2024-01-26 18:01 | Emergency (ER) | payer OTHER ==
[2024-01-26 18:12] VITALS: TEMP 98.2
--- NOTE | 2024-01-26 18:14 | ED ---
Chest Pain HPI - General Chief Complaint: Chest Pain Stated Complaint: chest pain Time Seen by Provider: 01/26/24 18:14 Source: patient, RN notes reviewed Mode of arrival: ambulatory Limitations: no limitations - History of Present Illness Initial Comments: This is a 28-year-old female past medical history of anxiety presents emergency department chief complaint of anterior left chest wall pain that began when she woke up this morning. She states that the pain has been constant in the middle of her chest, is nonradiating. She states that this is described as a burning sensation. She endorses nausea with no episodes of vomiting. She states that she has had intermittent feelings of shortness of breath, and currently is denying . denies previous feelings of chest pain similar to this. She denies personal history of congenital heart disease, or family history of sudden cardiac . Also endorsing mild abdominal pain, she has not taken any medication to help alleviate symptoms today. - Related Data Home Medications Medication Instructions Recorded Confirmed buPROPion HCL [buPROPion HCL Xl] 150 mg PO DAILY 01/26/24 01/26/24 hydrOXYzine pamoate 25 mg PO BID PRN 01/26/24 01/26/24 Allergies Allergy/AdvReac Type Severity Reaction Status Date / Time Penicillins Allergy Rash/Hives Verified 01/26/24 19:15 Review of Systems ROS Statement: Those systems with pertinent positive or pertinent negative responses have been documented in the HPI. ROS Other: All systems not noted in ROS Statement are negative. Past Medical History Past Medical History: No Reported History History of Any Multi-Drug Resistant Organisms: None Reported Past Surgical History: No Surgical Hx Reported Past Anesthesia/Blood Transfusion Reactions: No Reported Reaction Past Psychological History: Anxiety Smoking Status: Former smoker Past Alcohol Use History: None Reported Past Drug Use History: None Reported - Past Family History Father Family Medical History: No Reported History Mother Additional Family Medical History / Comment(s): Graves disease General Exam Limitations: no limitations General appearance: alert, in no apparent distress Head exam: Present: atraumatic, normocephalic, normal inspection Eye exam: Present: normal appearance, PERRL, EOMI. Absent: scleral icterus, conjunctival injection, periorbital swelling ENT exam: Present: normal exam, mucous membranes moist Neck exam: Present: normal inspection. Absent: tenderness, meningismus, lymphadenopathy Respiratory exam: Present: normal lung sounds bilaterally, chest wall tenderness (anterior). Absent: respiratory distress, wheezes, rales, rhonchi, stridor Cardiovascular Exam: Present: regular rate, normal rhythm, normal heart sounds, other. Absent: systolic murmur, diastolic murmur, rubs, gallop, clicks GI/Abdominal exam: Present: soft, tenderness (epigastric), normal bowel sounds. Absent: distended, guarding, rebound Extremities exam: Present: normal inspection, full ROM, normal capillary refill. Absent: tenderness, pedal edema, joint swelling, calf tenderness Back exam: Present: normal inspection Neurological exam: Present: alert, oriented X3, CN II-XII intact Course Vital Signs 01/26/24 01/26/24 01/26/24 18:10 18:33 19:58 Temperature 98.2 F Pulse Rate 81 87 Pulse Rate [ 72 Forklift Picker ] Respiratory 17 16 Rate Blood Pressure 117/79 105/68 O2 Sat by Pulse 99 100 Oximetry Chest Pain MDM - MDM Was pt. sent in by a medical professional or institution (, PA, ACCOUNTING DIRECTOR, urgent care, hospital, or alf...) When possible be specific @ -No Did you speak to anyone other than the patient for history (EMS, parent, family, police, friend...)? What history was obtained from this source @ -No Did you review nursing and triage notes (agree or disagree)? Why? @ -I reviewed and agree with nursing and triage notes Were old charts reviewed (outside hosp., previous admission, EMS record, old EKG, old radiological studies, urgent care reports/EKG's, alf records)? Report findings @ -No old charts were reviewed Differential Diagnosis (chest pain, altered mental status, abdominal pain women, abdominal pain men, vaginal bleeding, weakness, fever, dyspnea, syncope, headache, dizziness, GI bleed, back pain, seizure, CVA, palpatations, mental health, musculoskeletal)? @ -Differential Chest Pain: Stable Angina, Unstable Angina, STEMI, NSTEMI Aortic Dissection, Pneumothorax, Musculoskeletal, Esophageal Spasm GERD, Cholecystitis, Pancreatitis, Zoster, this is not meant to be an all-inclusive list. EKG interpreted by me (3pts min.). @ -completed at 1917, sinus rhythm with sinus arrhythmia, ventricular rate 80, DC of 137, QTc 411. No acute signs of ischemia. X-rays interpreted by me (1pt min.). @ -X-ray no acute cardiopulmonary process noted. CT interpreted by me (1pt min.). @ -None done U/S interpreted by me (1pt. min.). @ -None done What testing was considered but not performed or refused? (CT, X-rays, U/S, labs)? Why? @ -None What meds were considered but not given or refused? Why? @ -None Did you discuss the management of the patient with other professionals (professionals i.e. , PA, ACCOUNTING DIRECTOR, lab, RT, psych nurse, social service director, phone banker, teacher, biological technical officer, case advocate)? Give summary @ -No Was smoking cessation discussed for >3mins.? @ -No Was critical care preformed (if so, how long)? @ -No Were there social determinants of health that impacted care today? How? (Homelessness, low income, unemployed, alcoholism, drug addiction, t ransportation, low edu. Level, literacy, decrease access to med. care, fdc, rehab)? @ -No Was there de-escalation of care discussed even if they declined (Discuss DNR or withdrawal of care, Hospice)? DNR status @ -No What co-morbidities impacted this encounter? (DM, HTN, Smoking, COPD, CAD, Cancer, CVA, ARF, Chemo, Hep., AIDS, mental health diagnosis, sleep apnea, morbid obesity)? @ -None Was patient admitted / discharged? Hospital course, mention meds given and route, prescriptions, significant lab abnormalities, going to OR and other pertinent info. @ -28-year-old female with chest pain. On examination patient has mid abdominal pain in addition to pain is reproducible with palpation of the anterior chest wall. She will be evaluated via laboratory studies, chest x-ray, and EKG. Patient was offered pain medication and antinausea medication but she declined at this time. CMP, coagulation profile unremarkable. Troponin nonelevated. CT unremarkable. Patient was reoffered pain medication which she is excepted and she will receive a dose of Toradol. Recommend the patient follows up with her primary care provider for further evaluation. All acute life-threatening events have been ruled out at this time. Additionally, patient states that her chest pain has improved since this morning. All questions answered at bedside and strict return parameters discussed with the patient she has verbalized understanding. Case discussed with Dr. Kee Undiagnosed new problem with uncertain prognosis? @ -No Drug Therapy requiring intensive monitoring for toxicity (Heparin, Nitro, Insulin, Cardizem)? @ -No Were any procedures done? @ -No Diagnosis/symptom? @ -chest pain Acute, or Chronic, or Acute on Chronic? @ -acute Uncomplicated (without systemic symptoms) or Complicated (systemic symptoms)? @ -uncomplicated Side effects of treatment? @ -No Exacerbation, Progression, or Severe Exacerbation? @ -No Poses a threat to life or bodily function? How? (Chest pain, [place], [place], pneumonia, PE, COPD, DKA, ARF, appy, cholecystitis, CVA, Diverticulitis, Homicidal, Suicidal, threat to staff... and all critical care pts) @ -No Disposition Clinical Impression: Chest pain Disposition: HOME SELF-CARE Condition: Good Instructions (If sedation given, give patient instructions): Chest Pain (ED) Additional Instructions: Return to the emergency department if your symptoms worsen or not improved. Is patient prescribed a controlled substance at d/c from ED?: No Referrals: None,Stated [Primary Care Provider] - 1-2 days Time of Disposition: 19:41
--- NOTE | 2024-01-26 18:51 | XR ---
EXAMINATION TYPE: XR chest 2V DATE OF EXAM: 01/26/2024 6:41 PM CLINICAL INDICATION:Female, 28 years old with history of chest pain; COMPARISON: Chest radiographs from 09/25/2014 TECHNIQUE: XR chest 2V Frontal and lateral views of the chest. FINDINGS: Lungs/Pleura: There is no evidence of pleural effusion, focal consolidation, or pneumothorax. Pulmonary vascularity: Unremarkable. Heart/mediastinum: Cardiomediastinal silhouette is unremarkable. Musculoskeletal: No acute osseous pathology. IMPRESSION: No acute cardiopulmonary disease/process.
[2024-01-26 18:59] LABS: ALT 15 U/L (4-34); AST 28 U/L (14-36); African American GFR (CKD) >90 (>60 ml/min/1.73 sqM); Alkaline Phosphatase 51 U/L (38-126); Amylase 56 U/L (30-110); Anion Gap 6 mmol/L; Blood Urea Nitrogen 21 mg/dL (7-17); Carbon Dioxide 25 mmol/L (22-30); Chloride 107 mmol/L (98-107); Glucose 110 mg/dL (74-99); Lipase 111 U/L (23-300); Magnesium 1.9 mg/dL (1.6-2.3); Non-African American GFR(CKD) >90 (>60 ml/min/1.73 sqM); Potassium 4.6 mmol/L (3.5-5.1); Sodium 138 mmol/L (137-145); Total Bilirubin 0.5 mg/dL (0.2-1.3); Total Protein 7.9 g/dL (6.3-8.2)
[2024-01-26 19:13] LABS: Partial Thromboplastin Time 24.6 sec (22.0-30.0); Prothrombin Time 11.1 sec (10.0-12.5)
[2024-01-26 19:24] LABS: Basophils # (A) 0.1 k/uL (0-0.2); Basophils % (A) 1 %; Eosinophils # (A) 0.3 k/uL (0-0.7); Eosinophils % (A) 3 %; HCT 41.5 % (34.0-46.0); HGB 13.4 gm/dL (11.4-16.0); Lymphocytes # (A) 2.4 k/uL (1.0-4.8); Lymphocytes % (A) 25 %; MCH 30.6 pg (25.0-35.0); MCHC 32.3 g/dL (31.0-37.0); MCV 94.7 fL (80.0-100.0); Mean Platelet Volume 8.3; Monocytes # (A) 0.6 k/uL (0-1.0); Monocytes % (A) 6 %; Neutrophils # (A) 6.2 k/uL (1.3-7.7); Neutrophils % (A) 64 %; Platelet Count 253 k/uL (150-450); RBC 4.38 m/uL (3.80-5.40); RDW 12.6 % (11.5-15.5); WBC 9.7 k/uL (3.8-10.6)
[2024-01-26] MEDS: KETOROLAC 15 MG/ML 1 ML VIAL IVP STA (19:51)
[2024-01-26 19:59] VITALS: BP 105/68; PULSE 87; RESP 16
== END 2024-01-26 19:59 | disposition home or self-care (01) ==
LOC: EC 18:01
DX: I49.8 Other specified cardiac arrhythmias (principal); R10.13 Epigastric pain; Z88.0 Allergy status to penicillin; Z87.891 Personal history of nicotine dependence
CPT/HCPCS: 36415; 93005; 80053; 82150; 83690; 83735; 84484; 85025; 85610; 85730; 71046; 99285; 96374; J1885

== ENCOUNTER 2024-06-22 23:43 | Emergency (ER) | payer OTHER ==
--- NOTE | 2024-06-23 | ED ---
URI HPI - General Chief Complaint: Upper Respiratory Infection Stated Complaint: Fever, Cough, Vomiting Time Seen by Provider: 06/22/24 23:54 Source: patient, RN notes reviewed Mode of arrival: ambulatory Limitations: no limitations - History of Present Illness Initial Comments: This is a 29-year-old female who presents to the emergency department for co ughing, congestion, and fevers. States that it started 4 days ago. She has had associated nausea and vomiting. Still feels nauseous but not vomited since yesterday. Cough is described as dry. She did have possible sick contacts. Denies a sore throat or ear pain. Last took Tylenol about 45 minutes prior to arrival. Denies any chest pain or shortness of breath. MD Complaint: cough, sore throat - Related Data Home Medications Medication Instructions Recorded Confirmed buPROPion HCL [buPROPion HCL Xl] 150 mg PO DAILY 01/26/24 01/26/24 hydrOXYzine pamoate 25 mg PO BID PRN 01/26/24 01/26/24 Previous Rx's Medication Instructions Recorded Azithromycin [Zithromax] 250 mg PO DIRECTED 5 Days #6 tab 06/23/24 Benzonatate [Tessalon Perle] 200 mg PO TID PRN #30 capsule 06/23/24 Ondansetron Odt [Zofran Odt] 4 mg PO Q8HR PRN #20 tab 06/23/24 Allergies Allergy/AdvReac Type Severity Reaction Status Date / Time Penicillins Allergy Rash/Hives Verified 06/22/24 23:53 Review of Systems ROS Statement: Those systems with pertinent positive or pertinent negative responses have been documented in the HPI. ROS Other: All systems not noted in ROS Statement are negative. Past Medical History Past Medical History: No Reported History History of Any Multi-Drug Resistant Organisms: None Reported Past Surgical History: No Surgical Hx Reported Past Anesthesia/Blood Transfusion Reactions: No Reported Reaction Past Psychological History: Anxiety Smoking Status: Former smoker, Vaper Past Alcohol Use History: None Reported Past Drug Use History: None Reported - Past Family History Father Family Medical History: No Reported History Mother Additional Family Medical History / Comment(s): Graves disease General Exam Limitations: no limitations General appearance: alert, in no apparent distress Head exam: Present: atraumatic, normocephalic, normal inspection Respiratory exam: Present: normal lung sounds bilaterally. Absent: respiratory distress, wheezes, rales, rhonchi, stridor Cardiovascular Exam: Present: regular rate, normal rhythm, normal heart sounds. Absent: systolic murmur, diastolic murmur, rubs, gallop, clicks Neurological exam: Present: alert, oriented X3, CN II-XII intact Psychiatric exam: Present: normal affect, normal mood Skin exam: Present: warm, dry, intact, normal color. Absent: rash Course Vital Signs 06/22/24 06/23/24 06/23/24 23:50 00:50 01:46 Temperature 100 F H 98.9 F Pulse Rate 99 87 Respiratory 18 16 Rate Blood Pressure 115/79 101/67 O2 Sat by Pulse 97 97 Oximetry Medical Decision Making - Medical Decision Making This is a 29-year-old female who presents to the emergency department for coughing and congestion. Was pt. sent in by a medical professional or institution? @ -No Did you speak to anyone other than the patient for history? @ -No Did you review nursing and triage notes? @ -Yes, and I agree, it is accurate with regards to the patient's symptoms. Were old charts reviewed? @ -No Differential Diagnosis? @ -Differential Cough: Influenza, Covid, RSV, croup, allergic rhinitis, GERD, pneumonia, bronchitis, COPD, viral pharyngitis, streptococcal pharyngitis, this is not meant to be an all-inclusive list. EKG interpreted by me (3pts min.)? @ -Not obtained X-rays interpreted by me (1pt min.)? @ -Chest x-ray obtained. My interpretation identifies a right lower lobe infiltrate. CT interpreted by me (1pt min.)? @ -Not obtained U/S interpreted by me (1pt. min.)? @ -Not obtained What testing was considered but not performed? (CT, X-rays, U/S, labs)? Why? @ -None What meds were considered but not given? Why? @ -None Did you discuss the management of the patient with other professionals? @ -No Did you reconcile home meds? @ -No Was smoking cessation discussed for >3mins.? @ -No Was critical care preformed (if so, how long)? @ -No Were there social determinants of health that impacted care today? How? (Homelessness, low income, unemployed, alcoholism, drug addiction, transportatio n, low edu. Level, literacy, decrease access to med. care, [facility], rehab)? @ -No Was there de-escalation of care discussed even if they declined? (Discuss DNR or withdrawal of care, Hospice)? @ -No What co-morbidities impacted this encounter? (DM, HTN, Smoking, COPD, CAD, Cancer, CVA, Hep., AIDS, mental health diagnosis, sleep apnea, morbid obesity)? @ -None Was patient admitted / discharged? @ -Discharged. COVID, influenza, and RSV testing negative. Chest x-ray demonstrates a posterior right lower lobe infiltrate. Temperature slightly elevated on arrival and she was treated with ibuprofen. Tessalon Perles, Zofran, and initial dose of azithromycin administered in the emergency department. Prescription for azithromycin, Tessalon Perles, and Zofran provided. Strict return parameters discussed and she was advised to have close follow-up with her primary care provider. Patient discharged home in stable condition. Case discussed with ED attending Dr. Sal. Return precautions reviewed in depth, the patient is instructed to return to the emergency department with any new, worsening, or concerning symptoms. Patient verbalized understanding. Undiagnosed new problem with uncertain prognosis? @ -None Drug Therapy requiring intensive monitoring for toxicity (Heparin, Nitro, Insulin, Cardizem)? @ -None Were any procedures done? @ -None Diagnosis/symptom? @ -Pneumonia Acute, or Chronic, or Acute on Chronic? @ -Acute Uncomplicated (without systemic symptoms) or Complicated (systemic symptoms)? @ -Uncomplicated Side effects of treatment? @ -None Exacerbation, Progression, or Severe Exacerbation] @ -Not applicable Poses a threat to life or bodily function? @ -No - Lab Data Lab Results 06/23/24 Range/Units 00:10 Influenza Type A (PCR) Not Detected (Not Detectd) Influenza Type B (PCR) Not Detected (Not Detectd) RSV (PCR) Not Detected (Not Detectd) SARS-CoV-2 (PCR) Not Detected (Not Detectd) - Radiology Data Radiology results: report reviewed, image reviewed Disposition Clinical Impression: Pneumonia Disposition: HOME SELF-CARE Instructions (If sedation given, give patient instructions): Pneumonia (ED) Additional Instructions: Return to the emergency department with any new, worsening, or concerning symptoms. Take the antibiotic as prescribed for 5 days. Take the Tessalon Perles up to every 8 hours as needed for coughing. You can have the Zofran up to every 8 hours as needed for nausea and vomiting. Follow up with your primary care provider in 1-2 days. Prescriptions: Benzonatate [Tessalon Perle] 200 mg PO TID PRN #30 capsule PRN Reason: Cough Azithromycin [Zithromax] 250 mg PO DIRECTED 5 Days #6 tab Ondansetron Odt [Zofran Odt] 4 mg PO Q8HR PRN #20 tab PRN Reason: Nausea And Vomiting Is patient prescribed a controlled substance at d/c from ED?: No Referrals: Jacobo Tovar MD [Primary Care Provider] - 1-2 days Time of Disposition: 01:40
[2024-06-23] MEDS: ONDANSETRON ODT 4 MG TAB PO STA (00:05)
[2024-06-23] MEDS: BENZONATATE 100 MG CAP PO STA (00:06)
[2024-06-23] MEDS: IBUPROFEN 800 MG TAB PO STA (00:06)
--- NOTE | 2024-06-23 00:24 | XR ---
EXAMINATION TYPE: XR chest 2V DATE OF EXAM: 06/23/2024 CLINICAL HISTORY: Fever and cough TECHNIQUE: Frontal and lateral views of the chest are obtained. COMPARISON: Chest x-ray January 26, 2024 FINDINGS: There is new patchy airspace opacity posterior right lower lobe confirmed on 2 views. The cardiac silhouette size is within normal limits. The osseous structures are intact. IMPRESSION: There is posterior right lower lobe acute pneumonic infiltrate. [facility], , 06/23/2024 12:21 AM
[2024-06-23] MEDS: AZITHROMYCIN 500 MG TAB PO STA (00:43)
[2024-06-23 00:50] VITALS: TEMP 98.9
[2024-06-23 01:49] VITALS: BP 101/67; PULSE 87; RESP 16
== END 2024-06-23 01:46 | disposition home or self-care (01) ==
LOC: EC 23:43
DX: J18.9 Pneumonia, unspecified organism (principal); F17.290 Nicotine dependence, other tobacco product, uncomplicated; Z88.0 Allergy status to penicillin
CPT/HCPCS: 71046; 87636; 99284

== ENCOUNTER 2024-11-24 14:22 | Emergency (ER) | payer OTHER ==
[2024-11-24 14:50] VITALS: TEMP 99.7
--- NOTE | 2024-11-24 15:14 | ED ---
General Adult HPI - General Chief complaint: GI Bleed Stated complaint: Urogenital Time Seen by Provider: 11/24/24 15:12 Source: patient, RN notes reviewed Limitations: no limitations - History of Present Illness Initial comments: 29-year-old female presented to the ER for evaluation of bright red blood per stool. Patient states this morning after having a bowel movement she noticed bright red blood in the toilet bowl and on the toilet paper. No blood thinner use. Patient reports a history of hemorrhoids during . She denies any abdominal pain, constipation/diarrhea, nausea or vomiting. Denies any fevers or chills. Denies a history of ulcerative colitis, Crohn's disease or diverticulitis. Patient does admit to being on her menstrual cycle but states her flow is very light as she is near the end. She states she was very careful by wiping and noticed blood when only wiping her rectum. No other complaints. - Related Data Home Medications Medication Instructions Recorded Confirmed buPROPion HCL [buPROPion HCL Xl] 150 mg PO DAILY 01/26/24 01/26/24 hydrOXYzine pamoate 25 mg PO BID PRN 01/26/24 01/26/24 Previous Rx's Medication Instructions Recorded Azithromycin [Zithromax] 250 mg PO DIRECTED 5 Days #6 tab 06/23/24 Benzonatate [Tessalon Perle] 200 mg PO TID PRN #30 capsule 06/23/24 Ondansetron Odt [Zofran Odt] 4 mg PO Q8HR PRN #20 tab 06/23/24 Allergies Allergy/AdvReac Type Severity Reaction Status Date / Time Penicillins Allergy Rash/Hives Verified 11/24/24 14:50 Review of Systems ROS Statement: Those systems with pertinent positive or pertinent negative responses have been documented in the HPI. ROS Other: All systems not noted in ROS Statement are negative. Past Medical History Past Medical History: No Reported History History of Any Multi-Drug Resistant Organisms: None Reported Past Surgical History: No Surgical Hx Reported Past Anesthesia/Blood Transfusion Reactions: No Reported Reaction Past Psychological History: Anxiety Smoking Status: Former smoker, Vaper Past Alcohol Use History: None Reported Past Drug Use History: None Reported - Past Family History Father Family Medical History: No Reported History Mother Additional Family Medical History / Comment(s): Graves disease General Exam Limitations: no limitations General appearance: alert, in no apparent distress Respiratory exam: Present: normal lung sounds bilaterally. Absent: respiratory distress, wheezes, rales, rhonchi, stridor Cardiovascular Exam: Present: regular rate, normal rhythm, normal heart sounds. Absent: systolic murmur, diastolic murmur, rubs, gallop, clicks GI/Abdominal exam: Present: soft, normal bowel sounds. Absent: distended, tenderness, guarding, rebound, rigid Rectal exam: Present: normal inspection, normal rectal tone Neurological exam: Present: alert, oriented X3, CN II-XII intact Skin exam: Present: warm, dry, intact, normal color. Absent: rash Course Vital Signs 11/24/24 11/24/24 14:48 16:37 Temperature 99.7 F H Pulse Rate 79 78 Respiratory 18 20 Rate Blood Pressure 119/78 122/74 O2 Sat by Pulse 98 97 Oximetry Medical Decision Making - Medical Decision Making Was pt. sent in by a medical professional or institution (, PA, SUPERVISOR [employer], urgent care, hospital, or senior care...) When possible be specific @ -No Did you speak to anyone other than the patient for history (EMS, parent, family, police, friend...)? What history was obtained from this source @ -No Did you review nursing and triage notes (agree or disagree)? Why? @ -I reviewed and agree with nursing and triage notes Were old charts reviewed (outside hosp., previous admission, EMS record, old EKG, old radiological studies, urgent care reports/EKG's, senior care records)? Report findings @ -No old charts were reviewed Differential Diagnosis (chest pain, altered mental status, abdominal pain women, abdominal pain men, vaginal bleeding, weakness, fever, dyspnea, syncope, headache, dizziness, GI bleed, back pain, seizure, CVA, palpatations, mental health, musculoskeletal)? @ -Differential GI Bleed:Esophageal varices, aortoenteric fistula, Mamta- Shields, gastritis, peptic ulcer disease, diverticulosis, inflammatory bowel dise ase, hemorrhoids, fissure, colitis, malignancy, Meckel's diverticulum, this is not meant to be an all-inclusive list. EKG interpreted by me (3pts min.). @ -None done X-rays interpreted by me (1pt min.). @ -None done CT interpreted by me (1pt min.). @ -None done U/S interpreted by me (1pt. min.). @ -None done What testing was considered but not performed or refused? (CT, X-rays, U/S, labs)? Why? @ -None What meds were considered but not given or refused? Why? @ -None Did you discuss the management of the patient with other professionals (professionals i.e. Dr., PA, [employer], lab, RT, psych nurse, social science instructor, field foreman, teacher, photographic intelligence officer, human services case manager)? Give summary @ -No Was smoking cessation discussed for >3mins.? @ -No Was critical care preformed (if so, how long)? @ -No Were there social determinants of health that impacted care today? How? (Homelessness, low income, unemployed, alcoholism, drug addiction, transportation, low edu. Level, literacy, decrease access to med. care, residential, rehab)? @ -No Was there de-escalation of care discussed even if they declined (Discuss DNR or withdrawal of care, Hospice)? DNR status @ -No What co-morbidities impacted this encounter? (DM, HTN, Smoking, COPD, CAD, Cancer, CVA, ARF, Chemo, Hep., AIDS, mental health diagnosis, sleep apnea, morbid obesity)? @ -None Was patient admitted / discharged? Hospital course, mention meds given and route, prescriptions, significant lab abnormalities, going to OR and other pertinent info. @ - Discharged. 29-year-old female presented the ER for evaluation of bright red blood per stool. Vitals stable. Patient in no signs of acute distress nontoxic-appearing. Abdominal exam unremarkable nonsurgical. Rectal exam performed and chaperoned by Flakita Johnson RN. No hemorrhoids, anal fissures or gross blood on exam. Laboratory studies obtained showing a stable hemoglobin of 13. Stool occult negative. Imaging deferred at this time given unremarkable laboratory studies and no focal abdominal tenderness, patient is agreeable. Patient discharged stable condition with close follow-up to PCP. Strict return parameters discussed. Patient verbally expressed understanding agreement care plan. Case discussed with ED attending of Dr. Sal. Undiagnosed new problem with uncertain prognosis? @ -No Drug Therapy requiring intensive monitoring for toxicity (Heparin, Nitro, Insulin, Cardizem)? @ -No Were any procedures done? @ -No Diagnosis/symptom? @ -Bloody stool Acute, or Chronic, or Acute on Chronic? @ -Acute Uncomplicated (without systemic symptoms) or Complicated (systemic symptoms)? @ -Uncomplicated Side effects of treatment? @ -No Exacerbation, Progression, or Severe Exacerbation? @ -No Poses a threat to life or bodily function? How? (Chest pain, [place], [place], pneumonia, PE, COPD, DKA, ARF, appy, cholecystitis, CVA, Diverticulitis, Homicidal, Suicidal, threat to staff... and all critical care pts) @ -No - Lab Data Result diagrams: 11/24/24 15:44 11/24/24 15:44 Lab Results 11/24/24 11/24/24 11/24/24 Range/Units 15:44 15:44 15:44 WBC 7.89 (4.50-10.00) 10*3/uL RBC 4.12 (4.10-5.20) 10*6/uL Hgb 13.0 (12.0-15.0) g/dL Hct 37.9 (37.2-46.3) % MCV 92.0 (80.0-97.0) fL MCH 31.6 (27.0-32.0) pg MCHC 34.3 (32.0-37.0) g/dL Plt Count 268 (140-440) 10*3/uL MPV 9.9 (9.5-12.2) fL Immature Gran % (Auto) 0.3 % Neutrophils % 63.3 % Lymphocytes % 28.8 % Monocytes % 5.4 % Eosinophils % 0.9 % Basophils % 1.3 % Immature Gran # 0.02 (0.00-0.04) 10*3/uL Neutrophils # 5.00 (1.80-7.70) 10*3/uL Lymphocytes # 2.27 (0.90-5.00) 10*3/uL Monocytes # 0.43 (0.20-1.00) 10*3/uL Eosinophils # 0.07 (0.04-0.35) 10*3/uL Basophils # 0.10 (0.00-0.10) 10*3/uL Sodium 141 (137-145) mmol/L Potassium 4.4 (3.5-5.1) mmol/L Chloride 102 (98-107) mmol/L Carbon Dioxide 27 (22-30) mmol/L Anion Gap 12 mmol/L BUN 18 H (7-17) mg/dL Creatinine 0.74 (0.52-1.04) mg/dL Est GFR (CKD-EPI)AfAm >90 (>60 ml/min/1.73 sqM) Est GFR (CKD-EPI)NonAf >90 (>60 ml/min/1.73 sqM) Glucose 96 (74-99) mg/dL Calcium 10.3 H (8.4-10.2) mg/dL Total Bilirubin 0.5 (0.2-1.3) mg/dL AST 26 (14-36) U/L ALT 16 (4-34) U/L Alkaline Phosphatase 49 (38-126) U/L Total Protein 7.9 (6.3-8.2) g/dL Albumin 4.9 (3.5-5.0) g/dL Stool Occult Blood Negative (Negative) Disposition Clinical Impression: Rectal bleed Disposition: HOME SELF-CARE Condition: Stable Instructions (If sedation given, give patient instructions): Gastrointestinal Bleeding (ED) Additional Instructions: Follow-up with PCP. Return to the ER for any new or worsening concerns. Is patient prescribed a controlled substance at d/c from ED?: No Referrals: None,Stated [Primary Care Provider] - 1-2 days [facility] [NON-STAFF] - 1-2 days [facility] Family[facility] [NON-STAFF] - 1-2 days Forms: Area PCPs Time of Disposition: 16:20
[2024-11-24 15:50] LABS: Basophils % (A) 1.3 %; Eosinophils # (A) 0.07 10*3/uL (0.04-0.35); Eosinophils % (A) 0.9 %; HCT 37.9 % (37.2-46.3); Lymphocytes # (A) 2.27 10*3/uL (0.90-5.00); Lymphocytes % (A) 28.8 %; MCH 31.6 pg (27.0-32.0); MCHC 34.3 g/dL (32.0-37.0); Mean Platelet Volume 9.9 fL (9.5-12.2); Monocytes # (A) 0.43 10*3/uL (0.20-1.00); Monocytes % (A) 5.4 %; Neutrophils % (A) 63.3 %; Platelet Count 268 10*3/uL (140-440); RBC 4.12 10*6/uL (4.10-5.20); RDW 12.1 % (11.5-14.5); WBC 7.89 10*3/uL (4.50-10.00)
[2024-11-24 16:02] LABS: ALT 16 U/L (4-34); AST 26 U/L (14-36); African American GFR (CKD) >90 (>60 ml/min/1.73 sqM); Albumin 4.9 g/dL (3.5-5.0); Alkaline Phosphatase 49 U/L (38-126); Anion Gap 12 mmol/L; Blood Urea Nitrogen 18 mg/dL (7-17); Calcium 10.3 mg/dL (8.4-10.2); Carbon Dioxide 27 mmol/L (22-30); Chloride 102 mmol/L (98-107); Glucose 96 mg/dL (74-99); Non-African American GFR(CKD) >90 (>60 ml/min/1.73 sqM); Potassium 4.4 mmol/L (3.5-5.1); Sodium 141 mmol/L (137-145); Total Bilirubin 0.5 mg/dL (0.2-1.3); Total Protein 7.9 g/dL (6.3-8.2)
[2024-11-24 16:38] VITALS: BP 122/74; PULSE 78; RESP 20
== END 2024-11-24 16:37 | disposition home or self-care (01) ==
LOC: EC 14:22
DX: K62.5 Hemorrhage of anus and rectum (principal); F17.290 Nicotine dependence, other tobacco product, uncomplicated; Z88.0 Allergy status to penicillin
CPT/HCPCS: 36415; 80053; 82272; 85025; 99284

== ENCOUNTER 2025-01-18 22:27 | Emergency (ER) | payer OTHER ==
--- NOTE | 2025-01-18 23:28 | ED ---
General Adult HPI - General Chief complaint: Wound/Laceration Stated complaint: Fall-Head Injury,Chin Laceration Time Seen by Provider: 01/18/25 22:57 Source: patient, RN notes reviewed Mode of arrival: wheelchair Limitations: no limitations - History of Present Illness Initial comments: 29-year-old female presents to the emergency department for evaluation of jaw pain following a fall. Patient states that she was rollerblading when she lost her balance causing her to fall forward. She notes that she hit her chin on the concrete. She has a laceration to her chin. She reports pain with opening and closing the jaw. She also reports a headache. Denies any loss of consciousness. Denies nausea vomiting. Denies any changes in her vision. She denies any other injuries. She is unsure when she last had a tetanus vaccine. - Related Data Home Medications Medication Instructions Recorded Confirmed buPROPion HCL [buPROPion HCL Xl] 150 mg PO DAILY 01/26/24 01/26/24 hydrOXYzine pamoate 25 mg PO BID PRN 01/26/24 01/26/24 Previous Rx's Medication Instructions Recorded Azithromycin [Zithromax] 250 mg PO DIRECTED 5 Days #6 tab 06/23/24 Benzonatate [Tessalon Perle] 200 mg PO TID PRN #30 capsule 06/23/24 Ondansetron Odt [Zofran Odt] 4 mg PO Q8HR PRN #20 tab 06/23/24 Allergies Allergy/AdvReac Type Severity Reaction Status Date / Time fentanyl Allergy Rash/Hives Verified 01/18/25 22:52 Penicillins Allergy Rash/Hives Verified 11/24/24 14:50 Review of Systems ROS Statement: Those systems with pertinent positive or pertinent negative responses have been documented in the HPI. ROS Other: All systems not noted in ROS Statement are negative. Past Medical History Past Medical History: No Reported History History of Any Multi-Drug Resistant Organisms: None Reported Past Surgical History: No Surgical Hx Reported Past Anesthesia/Blood Transfusion Reactions: No Reported Reaction Past Psychological History: Anxiety Smoking Status: Former smoker, Vaper Past Alcohol Use History: Occasional Past Drug Use History: None Reported - Past Family History Father Family Medical History: No Reported History Mother Additional Family Medical History / Comment(s): Graves disease General Exam Limitations: no limitations General appearance: alert, in no apparent distress Head exam: Present: atraumatic, normocephalic, normal inspection Eye exam: Present: normal appearance, PERRL, EOMI. Absent: scleral icterus, conjunctival injection, periorbital swelling ENT exam: Present: mucous membranes moist, other (Pain at TMJ) Neck exam: Present: normal inspection, full ROM. Absent: tenderness, meningismus, lymphadenopathy Respiratory exam: Present: normal lung sounds bilaterally. Absent: respiratory distress, wheezes, rales, rhonchi, stridor Cardiovascular Exam: Present: regular rate, normal rhythm, normal heart sounds. Absent: systolic murmur, diastolic murmur, rubs, gallop, clicks Extremities exam: Present: normal inspection, full ROM, normal capillary refill. Absent: tenderness, pedal edema, joint swelling, calf tenderness Neurological exam: Present: alert, oriented X3 Psychiatric exam: Present: normal affect, normal mood Skin exam: Present: warm, dry. Absent: intact (1.5 cm laceration to the chin) Course Vital Signs 01/18/25 01/19/25 22:49 00:51 Temperature 98.3 F 98.4 F Pulse Rate 95 72 Respiratory 18 16 Rate Blood Pressure 116/75 104/66 O2 Sat by Pulse 97 99 Oximetry Procedures - Laceration Laceration #1 Consent Obtained: verbal consent Indication: laceration Site: face Size (cm): 1 Description: linear Depth: simple, single layer Anesthetic Used: lidocaine 1% Anesthesia Technique: local infiltration Pre-repair: wound explored Type of Sutures: other Size of Sutures: 6-0 Number of Sutures: 4 Technique: simple, interrupted Patient Tolerated Procedure: well, no complications Medical Decision Making - Medical Decision Making Was pt. sent in by a medical professional or institution (, [facility], [employer], urgent care, hospital, or halfway...) When possible be specific @ -No Did you speak to anyone other than the patient for history (EMS, parent, family, police, friend...)? What history was obtained from this source @ -No Did you review nursing and triage notes (agree or disagree)? Why? @ -I reviewed and agree with nursing and triage notes Were old charts reviewed (outside hosp., previous admission, EMS record, old EKG, old radiological studies, urgent care reports/EKG's, halfway records)? Report findings @ -No old charts were reviewed Differential Diagnosis (chest pain, altered mental status, abdominal pain women, abdominal pain men, vaginal bleeding, weakness, fever, dyspnea, syncope, headache, dizziness, GI bleed, back pain, seizure, CVA, palpatations, mental health, musculoskeletal)? @ -Laceration, head injury, mandibular fracture, this is not all inclusive EKG interpreted by me (3pts min.). @ -None X-rays interpreted by me (1pt min.). @ -None done CT interpreted by me (1pt min.). @ -CT brain and facial bones reveals no evidence of acute process U/S interpreted by me (1pt. min.). @ -None done What testing was considered but not performed or refused? (CT, X-rays, U/S, labs)? Why? @ -None What meds were considered but not given or refused? Why? @ -None Did you discuss the management of the patient with other professionals (professionals i.e. , PA, [facility], lab, RT, psych nurse, home health care social worker, duplicating machine servicer, teacher, access control officer, pillowcase cutter)? Give summary @ -No Was smoking cessation discussed for >3mins.? @ -No Was critical care preformed (if so, how long)? @ -No Were there social determinants of health that impacted care today? How? (Homelessness, low income, unemployed, alcoholism, drug addiction, transportation, low edu. Level, literacy, decrease access to med. care, intermediate, rehab)? @ -No Was there de-escalation of care discussed even if they declined (Discuss DNR or withdrawal of care, Hospice)? DNR status @ -No What co-morbidities impacted this encounter? (DM, HTN, Smoking, COPD, CAD, Cancer, CVA, ARF, Chemo, Hep., AIDS, mental health diagnosis, sleep apnea, morbid obesity)? @ -None Was patient admitted / discharged? Hospital course, mention meds given and route, prescriptions, significant lab abnormalities, going to OR and other pertinent info. @ -Discharge. Patient presented to the emergency department for evaluation of fall. CT of the. Patient labs reveals no evidence of acute process. Laceration on the chin was repaired. Patient updated on tetanus vaccine. She was advised on wound care and suture removal time. She is understanding agreeable discharge plan. Patient stable at time of discharge. Case discussed with Dr. Rajput Undiagnosed new problem with uncertain prognosis? @ -No Drug Therapy requiring intensive monitoring for toxicity (Heparin, Nitro, Insulin, Cardizem)? @ -No Were any procedures done? @ -Laceration repair Diagnosis/symptom? @ -Laceration, head injury Acute, or Chronic, or Acute on Chronic? @ -Acute Uncomplicated (without systemic symptoms) or Complicated (systemic symptoms)? @ -Uncomplicated Side effects of treatment? @ -No Exacerbation, Progression, or Severe Exacerbation? @ -No Poses a threat to life or bodily function? How? (Chest pain, [place], [place], pneumonia, PE, COPD, DKA, ARF, appy, cholecystitis, CVA, Diverticulitis, Homicidal, Suicidal, threat to staff... and all critical care pts) @ -No Disposition Clinical Impression: Laceration, Head injury Disposition: HOME SELF-CARE Condition: Stable Instructions (If sedation given, give patient instructions): Care For Your Stitches (ED) Additional Instructions: Please keep wound clean and dry Be on the look out for signs of infection including redness, discharge, increa sed pain. Please follow-up with your primary care provider. Return to the emergency department for new or worsening symptoms. Is patient prescribed a controlled substance at d/c from ED?: No Referrals: None,Stated [Primary Care Provider] - 1-2 days
[2025-01-18] MEDS: DIPH,PERTUS(ACELL)TETVAC-LF 0.5 ML VIAL IM ONE (23:34)
[2025-01-19] MEDS: LIDOCAINE/EPINEPHR/TETRACAINE 5 ML BOTTLE TOPICAL ONE (00:16)
[2025-01-19] MEDS: LIDOCAINE 1% INJ 10MG/ML (20 ML MDV) SQ ONE (00:22)
--- NOTE | 2025-01-19 00:26 | CT ---
EXAM: CT Head Without Intravenous Contrast CLINICAL HISTORY: ITS.REASON CT Reason: fall TECHNIQUE: Axial computed tomography images of the head/brain without intravenous contrast. CTDI is 45.2 mGy and DLP is 1334.4 mGy-cm. This CT exam was performed using one or more of the following dose reduction techniques: automated exposure control, adjustment of the mA and/or kV according to patient size, and/or use of iterative reconstruction technique. COMPARISON: No relevant prior studies available. FINDINGS: No acute intracranial hemorrhage. No midline shift or mass effect. The territorial bennett-white matter differentiation is maintained throughout. The ventricles and sulci are commensurate with age. The visualized orbits appear grossly unremarkable. The calvarium is intact. The visualized paranasal sinuses and mastoid air cells are grossly clear. IMPRESSION: No acute intracranial hemorrhage, midline shift, or mass effect.
--- NOTE | 2025-01-19 00:28 | CT ---
EXAM: CT Maxillofacial Without Intravenous Contrast CLINICAL HISTORY: ITS.REASON CT Reason: fall TECHNIQUE: Axial computed tomography images of the face without intravenous contrast. CTDI is 45.2 mGy and DLP is 1334.4 mGy-cm. This CT exam was performed using one or more of the following dose reduction techniques: automated exposure control, adjustment of the mA and/or kV according to patient size, and/or use of iterative reconstruction technique. COMPARISON: No relevant prior studies available. FINDINGS: The mandible is intact. Left-sided chin laceration. Intact maxillary alveolus. No orbital floor fracture. The intraorbital contents are grossly unremarkable. Intact nasal bone, nasal septum, and maxillary spine. The zygomatic arches and pterygoid processes are intact. IMPRESSION: No facial bone fracture. Left-sided chin laceration.
[2025-01-19] MEDS: ACETAMINOPHEN TAB 500 MG TAB PO STA (00:42)
[2025-01-19 01:13] VITALS: BP 104/66; PULSE 72; RESP 16; TEMP 98.4
== END 2025-01-19 00:51 | disposition home or self-care (01) ==
LOC: EC 22:27
DX: S01.81XA Laceration without foreign body of other part of head, initial encounter (principal); F17.290 Nicotine dependence, other tobacco product, uncomplicated; Z88.0 Allergy status to penicillin; Z88.5 Allergy status to narcotic agent; Z23 Encounter for immunization; W22.09XA Striking against other stationary object, initial encounter
CPT/HCPCS: 70486; 70450; 90715; 12011; 99283; 90471; J2003